=== PATIENT | female | born 1970 | race Caucasian/White ===

== ENCOUNTER 2016-10-01 10:33 | Emergency (ER) | payer SELFPAY ==
[2016-10-01 10:47] VITALS: BP 149/99
[2016-10-01] MEDS ORDERED: Ketorolac 60 MG/2 ML SDV IM ONE (11:04)
[2016-10-01] MEDS ORDERED: Cyclobenzaprine 10 MG Tab PO ONE (11:04)
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
[2016-10-01] MEDS ORDERED: HYDROmorphone 1 MG/ML Syringe IM ONE (12:14)
== END 2016-10-01 13:35 | disposition home or self-care (01) ==
LOC: JP.ED 10:33 → EEVIPCON 10:33 → JP.ED 13:35
DX: M54.5 Low back pain (principal); G89.29 Other chronic pain; E66.9 Obesity, unspecified; Z68.37 Body mass index [BMI] 37.0-37.9, adult; Z88.0 Allergy status to penicillin; Z88.8 Allergy status to other drugs, medicaments and biological substances
CPT/HCPCS: 96372; 99283; J1170; J1885